=== PATIENT | female | born 1975 | race Caucasian/White ===

== ENCOUNTER 2022-07-31 09:06 | Outpatient (CLI) | payer OTHER, SELFPAY ==
[2022-07-31 15:07] LABS: Albumin* 4.6 g/dL (3.3-5.0); Chloride* 104 mmol/L (96-114)
[2022-07-31 15:08] LABS: Potassium* 4.4 mmol/L (3.6-5.1); Sodium* 137 mmol/L (135-149)
[2022-07-31 15:10] LABS: Alkaline Phosphatase* 83 U/L (40-150); Aspartate Amino Transferase* 30 U/L (12-35); Bilirubin Total* 0.2 mg/dL (0.1-1.5); Blood Urea Nitrogen* 15 mg/dL (5-24); Carbon Dioxide* 23 mmol/L (20-32); Cholesterol* 259 mg/dL (90-199); Creatinine* 0.7 mg/dL (0.5-1.5); Estimated Glomerular Filt Rate 109 ml/min; Glucose* 108 mg/dL (60-115); Total Protein* 7.5 g/dL (6.0-8.3)
[2022-07-31 15:11] LABS: Alanine Aminotransferase* 27 U/L (4-35); Calcium* 9.1 mg/dL (8.4-10.6); HDL Cholesterol* 45 mg/dL (>=50); LDL Cholesterol Calculated 174 mg/dL (<100); Triglycerides* 202 mg/dL (40-149)
== END 2022-07-31 09:07 | disposition home or self-care (01) ==
PROVIDERS: PCP Internal Medicine; Visit Provider Physician Assistant Medical
DX: Z01.419 Encounter for gynecological examination (general) (routine) without abnormal findings (principal); L40.9 Psoriasis, unspecified; F32.A Depression, unspecified; Z13.6 Encounter for screening for cardiovascular disorders; Z13.29 Encounter for screening for other suspected endocrine disorder
CPT/HCPCS: 80053; 80061; 84443; 87624; 88175

== ENCOUNTER 2022-08-13 10:27 | Outpatient (CLI) | payer OTHER, SELFPAY ==
--- NOTE | 2022-08-13 10:45 | CRLHL7_ITS ---
For Patients: As a result of the Cures Act, medical imaging exams and procedure reports are released immediately into your electronic medical record. You may view this report before your referring provider. If you have questions, please contact your health care provider. DIGITAL DIAGNOSTIC BILATERAL MAMMOGRAM USING TOMOSYNTHESIS AND COMPUTER-AIDED DETECTION RIGHT BREAST ULTRASOUND CLINICAL HISTORY: RIGHT breast pain. COMPARISON: None. TECHNIQUE: Digital BILATERAL mammogram in two projections. Tomosynthesis and CAD utilized. Real-time ultrasound imaging of RIGHT breast with imaging documentation. BREAST COMPOSITION: The breasts are heterogeneously dense, which may obscure small masses. FINDINGS: 3D CC and 3D MLO mammogram submitted bilaterally. No suspicious masses or architectural distortion. No adenopathy or suspicious calcifications. Targeted RIGHT breast ultrasound performed in the area of concern at 5 o`clock 8 cm from the nipple and 10 o`clock 5 cm from the nipple. Normal fibroglandular tissue is present. No fibrocystic change or solid mass. IMPRESSION: Normal BILATERAL mammograms and normal targeted RIGHT breast ultrasound. No evidence of malignancy. RECOMMENDATIONS: Annual BILATERAL screening mammography. Results and recommendations discussed with the patient. BI-RADS Category 2: Benign A lay language report of this examination will be provided to the patient. Dictated by Jamie Perez MD @ 08/13/2022 11:43:42 AM jj/Dictated by: Jamie Perez MD @ 08/13/2022 11:43:00 AM (Electronically Signed)
--- NOTE | 2022-08-13 11:15 | CRLHL7_ITS ---
For Patients: As a result of the Cures Act, medical imaging exams and procedure reports are released immediately into your electronic medical record. You may view this report before your referring provider. If you have questions, please contact your health care provider. PLEASE SEE DIGITAL DIAGNOSTIC BILATERAL MAMMOGRAM PERFORMED SAME DAY CRL:[email or web address] [email or web address]/Dictated by: Jamie Perez MD @ 08/13/2022 11:43:00 AM (Electronically Signed)
== END 2022-08-13 10:28 | disposition home or self-care (01) ==
LOC: MAMMO 10:28
PROVIDERS: PCP Internal Medicine; Visit Provider Physician Assistant Medical
DX: N64.4 Mastodynia (principal); R92.2 Inconclusive mammogram
CPT/HCPCS: 76642; 77066; G0279

== ENCOUNTER 2023-11-03 08:29 | Outpatient (CLI) | payer OTHER, SELFPAY | END 2023-11-03 08:30 | disposition home or self-care (01) | LOC: NFLDREF 11-05 13:15 | PROVIDERS: PCP Internal Medicine; Referring Provider Internal Medicine; Visit Provider Physician Assistant Medical | DX: E78.2 Mixed hyperlipidemia (principal); Z79.899 Other long term (current) drug therapy; Z13.29 Encounter for screening for other suspected endocrine disorder; Z13.9 Encounter for screening, unspecified | CPT/HCPCS: 80053; 80061; 84443; 86703; 86803 ==

== ENCOUNTER 2024-03-28 09:04 | Outpatient (CLI) | payer OTHER, SELFPAY | END 2024-03-28 09:05 | disposition home or self-care (01) | LOC: NFLDREF 03-30 07:39 | PROVIDERS: PCP Physician Assistant Medical; Referring Provider Internal Medicine; Visit Provider Physician Assistant Medical | DX: E78.5 Hyperlipidemia, unspecified (principal); R79.89 Other specified abnormal findings of blood chemistry | CPT/HCPCS: 80061; 84450; 84460 ==

== ENCOUNTER 2025-01-25 12:02 | Outpatient (CLI) | payer OTHER, SELFPAY ==
[2025-01-25 23:31] LABS: Chlamydia DNA Amplified* NOT DETECTED (No Detected); GC DNA Amplified* NOT DETECTED (No Detected)
[2025-01-27 14:50] LABS: HPV Source Cervix; HPV, High Risk by TMA Not Detected
== END 2025-01-25 12:03 | disposition home or self-care (01) ==
PROVIDERS: PCP Physician Assistant Medical; Visit Provider Physician Assistant Medical
DX: E78.5 Hyperlipidemia, unspecified (principal); R79.89 Other specified abnormal findings of blood chemistry; R63.5 Abnormal weight gain; Z13.0 Encounter for screening for diseases of the blood and blood-forming organs and certain disorders involving the immune mechanism; Z13.6 Encounter for screening for cardiovascular disorders; Z11.3 Encounter for screening for infections with a predominantly sexual mode of transmission
CPT/HCPCS: 80053; 80061; 84443; 87491; 87591; 87624; 87625; 88141; 88142